=== PATIENT | female | born 1950 | race Two or more races ===

== ENCOUNTER 2019-10-27 18:44 | Emergency (ER) | payer MEDICAID ==
[~2019-10-27] VITALS: Ht 162.6 cm; Wt 81.0 kg
[2019-10-27] MEDS ORDERED: METF-416 PO (18:50)
[2019-10-27] MEDS ORDERED: IBUPROFEN 600MG TABLET PO ONE (21:30)
[2019-10-27] MEDS ORDERED: HYDROCODONE/ACETAMINOPHEN 5/325MG TABLET PO ONE (21:30)
[2019-10-27 21:55] LABS: CHLORIDE 93 mEq/L (98-107)
[2019-10-27] MEDS ORDERED: SODIUM CHLORIDE 0.9% 500 ML IV ONE (22:00)
[2019-10-27] MEDS ORDERED: MAGNESIUM CHLORIDE 64MG TABLET SR PO STA (23:15)
[2019-10-27] MEDS ORDERED: INSULIN LISPRO 100 UNITS/ML SUBCUT NR (23:30)
[2019-10-28 01:15] VITALS: BP 126/76
== END 2019-10-28 01:30 | disposition home or self-care (01) ==
LOC: ER 18:44
DX: S42.491A Other displaced fracture of lower end of right humerus, initial encounter for closed fracture (principal); S70.01XA Contusion of right hip, initial encounter; R73.9 Hyperglycemia, unspecified; E11.9 Type 2 diabetes mellitus without complications; I10 Essential (primary) hypertension; Y08.89XA Assault by other specified means, initial encounter; Y93.89 Activity, other specified; Y92.89 Other specified places as the place of occurrence of the external cause; Y99.8 Other external cause status; Z88.6 Allergy status to analgesic agent
CPT/HCPCS: 29105; 36415; 73080; 73502; 80048; 82962; 83735; 96360; 96361; 96372; 99284; J1815